=== PATIENT | male | born 1990 | race Caucasian/White ===

== ENCOUNTER 2018-02-25 07:38 | Emergency (ER) | payer BC, OTHER ==
[2018-02-25] MEDS ORDERED: Ibuprofen 800 MG Tab PO ONE (07:47)
[2018-02-25] MEDS ORDERED: HYDROmorphone 2 MG/ML SDV IM ONE (08:00)
[2018-02-25] MEDS ORDERED: Ondansetron 4 MG Tab.DIS PO ONE (08:00)
--- NOTE | 2018-02-25 08:08 | EDM.PDOC ---
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 Complains of right foot pain. No other complaints. Onset: Today Onset Date: 02/25/18 Onset Time: 07:00 Duration: Hour(s): (1) Location: Reports: Lower Extremity, Right Quality: Reports: Ache Severity: Moderate Improves with: Reports: None Worsens with: Reports: Movement Context: Reports: Trauma Associated Symptoms: Reports: No Other Symptoms R foot Pain Score (Numeric/FACES): 10 - Related Data Allergies Allergy/AdvReac Type Severity Reaction Status Date / Time No Known Allergies Allergy Verified 02/25/18 07:46 Home Meds: Home Meds Acetaminophen/HYDROcodone [[place] 325-5 MG] 1 - 2 tab PO Q6H PRN #20 tab [Rx] valACYclovir HCl [valACYclovir] 1 tab TID PRN 02/25/18 [History] Past Medical History - Past Health History Medical/Surgical History: Denies Medical/Surgical History HEENT History: Reports: Other (See Below) Other HEENT History: GRAPHIC DESIGNER BURN - Past Surgical History Musculoskeletal Surgical History: Reports: Shoulder Surgery, Other (See Below) Social & Family History - Living Situation & Occupation Living situation: Reports: Single Occupation: Employed Review of Systems - Review of Systems Review Of Systems: ROS reveals no pertinent complaints other than HPI. 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.) Neurological: Alert, Oriented, No Motor/Sensory Deficits Psychiatric: Normal Affect, Normal Mood Skin Exam: Warm, Dry, Intact ED TRAUMA EXTREMITY PROCEDURES - Splinting Right Lower Extremity Splint Site: RLE Pre-Procedure NV Status: Normal Post-Procedure NV Status: Normal Splint Material: Fiberglass Splint Design: Posterior, Other (short leg) Applied & Form Fitted By: Provider Provider Post-Splint Application NV Check: NV Status Normal Complications: No Course - Vital Signs Last Recorded V/S: Last Vital Signs Temp 36.3 C 02/25/18 07:38 Pulse 82 02/25/18 07:38 Resp 18 02/25/18 07:38 BP 131/71 02/25/18 07:38 Pulse Ox 100 02/25/18 07:38 - Orders/Labs/Meds Orders: Active Orders 24 hr Category Date Time Status Foot Comp Min 3V Rt [CR] Stat Exams 02/25/18 07:47 Taken Meds: Medications Discontinued Medications Generic Name Dose Route Start Last Admin Trade Name Freq PRN Reason Stop Dose Admin Hydromorphone HCl 1 mg 02/25/18 08:00 02/25/18 08:07 Dilaudid IM 02/25/18 08:01 1 mg ONETIME ONE Administration Ibuprofen 800 mg 02/25/18 07:47 02/25/18 08:01 Motrin PO 02/25/18 07:48 800 mg ONETIME ONE Administration Ondansetron HCl 4 mg 02/25/18 08:00 02/25/18 08:07 Zofran Odt PO 02/25/18 08:01 4 mg ONETIME ONE Administration - Radiology Interpretation Free Text/Narrative:: Right foot XR: comminuted and displaced fx of 2nd metatarsal, non-displaced fx of 3rd metatarsal. Departure - Departure Time of Disposition: 08:38 Disposition: Home, Self-Care 01 Condition: Good Clinical Impression: Closed fracture of foot Foot fracture, right Qualifiers: Encounter type: initial encounter Fracture type: closed Qualified Code(s): S92.901A - Unspecified fracture of right foot, initial encounter for closed fracture - Discharge Information *PRESCRIPTION DRUG MONITORING PROGRAM REVIEWED*: Yes *COPY OF PRESCRIPTION DRUG MONITORING REPORT IN PATIENT ROBYN: Not Applicable Prescriptions: Acetaminophen/HYDROcodone [[place] 325-5 MG] 1 - 2 tab PO Q6H PRN #20 tab PRN Reason: Pain Instructions: Crutch Use, Adult, [id number], Cast or Splint Care, Adult, Easy -to-Read, Metatarsal Fracture Referrals: PCP,None [Primary Care Provider] - Forms: ED Department Discharge Additional Instructions: Follow up at [facility] in [place], [place] today at 11:20 am. - My Orders Last 24 Hours: My Active Orders 02/25/18 07:47 Foot Comp Min 3V Rt [CR] Stat - Assessment/Plan Last 24 Hours: My Active Orders 02/25/18 07:47 Foot Comp Min 3V Rt [CR] Stat
[2018-02-25 09:14] VITALS: BP 110/64
--- NOTE | 2018-02-25 14:22 | CR ---
INDICATIONS: Dropped metal flash on foot, pain. RIGHT FOOT: Three views of the right foot revealed comminuted fracture at the midshaft of the second metatarsal with plantar offset of the main distal fracture fragment and rotation of a smaller comminuted fracture fragment almost 90 degrees. Additionally, in the midportion of the right third metatarsal, there is a hairline type fracture in good position and alignment. No other bone or joint abnormality was identified. MTDD
== END 2018-02-25 09:08 | disposition home or self-care (01) ==
LOC: FB.ED 07:38
DX: S92.334A Nondisplaced fracture of third metatarsal bone, right foot, initial encounter for closed fracture (principal); S92.321A Displaced fracture of second metatarsal bone, right foot, initial encounter for closed fracture; W20.8XXA Other cause of strike by thrown, projected or falling object, initial encounter; Y99.0 Civilian activity done for income or pay
CPT/HCPCS: 29515; 73630; 96372; 99283; A9270; J1170

== ENCOUNTER 2019-05-24 19:28 | Emergency (ER) | payer BC ==
[2019-05-24] MEDS ORDERED: Acetaminophen/HYDROcodone 325-5 MG Tab PO ONE ×2 (19:29→21:45)
[2019-05-24] MEDS ORDERED: Ondansetron 4 MG Tab.DIS PO ONE (19:29)
[2019-05-24] MEDS ORDERED: Ondansetron 4 MG/2 ML SDV IVPUSH ONE (20:00)
[2019-05-24] MEDS ORDERED: HYDROmorphone 2 MG/ML SDV IVPUSH ONE ×2 (20:00→20:35)
[2019-05-24] MEDS ORDERED: Sodium Chloride 0.9% 1,000 ML IV ONE (20:00)
[2019-05-24] MEDS ORDERED: Iopamidol 755 Mg/ML 100 ML Bottle IV ONE (20:13)
--- NOTE | 2019-05-24 21:23 | EDM.PDOC ---
ED HPI GENERAL MEDICAL PROBLEM - General Chief Complaint: Abdominal Pain Stated Complaint: STOMACH PAIN Time Seen by Provider: 05/24/19 20:00 Source of Information: Reports: Patient History Limitations: Reports: No Limitations - History of Present Illness INITIAL COMMENTS - FREE TEXT/NARRATIVE: Patient presents with low abdominal pain, onset this morning, rated as severe, associated with N/V. No prior h/o abdominal surgeries or kidney stones. Pain does not radiate Onset: Today Location: Reports: Abdomen Quality: Reports: Ache Severity: Severe Associated Symptoms: Reports: Nausea/Vomiting - Related Data Allergies Allergy/AdvReac Type Severity Reaction Status Date / Time No Known Allergies Allergy Verified 05/24/19 19:57 Past Medical History - Past Health History Medical/Surgical History: Denies Medical/Surgical History - Infectious Disease History Infectious Disease History: Reports: Herpes - Past Surgical History Musculoskeletal Surgical History: Reports: Shoulder Surgery Social & Family History - Family History Family Medical History: Noncontributory - Tobacco Use Smoking Status *Q: Current Every Day Smoker Tobacco Use Within Last Twelve Months: Cigarettes Years of Tobacco use: 10 Packs/Tins Daily: 1 - Caffeine Use Caffeine Use: Reports: Coffee, Energy Drinks, Soda, Tea - Alcohol Use Alcohol Use History: No - Recreational Drug Use Recreational Drug Use: No - Living Situation & Occupation Living situation: Reports: Single Occupation: Employed ED ROS GENERAL - Review of Systems Review Of Systems: ROS reveals no pertinent complaints other than HPI. ED EXAM, GI/ABD - Physical Exam Exam: See Below Exam Limited By: No Limitations General Appearance: Alert, WD/WN, Mild Distress Ears: Normal External Exam Nose: Normal Inspection Throat/Mouth: No Airway Compromise Head: Atraumatic, Normocephalic Neck: Full Range of Motion Respiratory/Chest: No Respiratory Distress, Lungs Clear, Normal Breath Sounds Cardiovascular: Regular Rate, Rhythm, No Murmur GI/Abdominal Exam: Normal Bowel Sounds, Soft, Tender (low abdomen) (Male) Exam: No Hernia Back Exam: Normal Inspection. No: CVA Tenderness (R), CVA Tenderness (L) Extremities: Normal Range of Motion Neurological: Alert, Normal Cognition Psychiatric: Normal Affect Skin Exam: Warm, Dry, Intact Course - Vital Signs Last Recorded V/S: Last Vital Signs Temp 36.4 C 05/24/19 19:30 Pulse 59 L 05/24/19 19:30 Resp 20 05/24/19 19:30 BP 141/76 H 05/24/19 19:30 Pulse Ox 100 05/24/19 19:30 - Orders/Labs/Meds Orders: Active Orders 24 hr Category Date Time Status Abdomen Pelvis w Cont [CT] Stat Exams 05/24/19 20:00 Taken CHLAMYDIA/GC AMPLIFICATION Stat Lab 05/24/19 21:37 Ordered CULTURE URINE [RM] Stat Lab 05/24/19 21:24 Ordered Acetaminophen/HYDROcodone [[place] 325-5 MG] Med 05/24/19 21:45 Once 1 tab PO ONETIME ONE Medication Orders Hydrocodone Bitart/Acetaminophen ([place] 325-5 Mg) 1 tab PO ONETIME ONE Stop: 05/24/19 21:46 Labs: Laboratory Tests 05/24/19 05/24/19 05/24/19 Range/Units 19:52 20:10 20:10 WBC 9.9 (4.5-12.0) X10-3/uL RBC 4.81 (4.30-5.75) x10(6)uL Hgb 15.3 (13.5-17.8) g/dL Hct 44.4 (30.0-51.3) % MCV 92.2 (80-96) fL MCH 31.7 (27.7-33.6) pg MCHC 34.4 (32.2-35.4) g/dL RDW 12.1 (11.5-15.5) % Plt Count 150 (125-369) X10(3)uL MPV 10.0 (7.4-10.4) fL Neut % (Auto) 79.3 (46-82) % Lymph % (Auto) 15.2 (13-37) % [place] % (Auto) 4.7 (4-12) % Eos % (Auto) 1 (1.0-5.0) % Baso % (Auto) 0 (0-2) % Neut # (Auto) 7.8 (1.6-8.3) # Lymph # (Auto) 1.5 (0.6-5.0) # [place] # (Auto) 0.5 (0.0-1.3) # Eos # (Auto) 0.1 (0.0-0.8) # Baso # (Auto) 0.0 (0.0-0.2) # Sodium 140 (135-145) mmol/L Potassium 3.8 (3.5-5.3) mmol/L Chloride 103 (100-110) mmol/L Carbon Dioxide 28 (21-32) mmol/L BUN 12 (7-18) mg/dL Creatinine 0.9 (0.70-1.30) mg/dL Est Cr Clr Drug Dosing 131.73 mL/min Estimated GFR (MDRD) > 60 (>60) BUN/Creatinine Ratio 13.3 (9-20) Glucose 115 (80-116) mg/dL Calcium 9.1 (8.6-10.2) mg/dL Total Bilirubin 0.4 (0.1-1.3) mg/dL AST 14 (5-25) IU/L ALT 16 (12-36) U/L Alkaline Phosphatase 79 (56-112) IU/L Total Protein 7.4 (6.0-8.0) g/dL Albumin 4.3 (3.5-5.2) g/dL Globulin 3.1 g/dL Albumin/Globulin Ratio 1.4 Amylase 46 (25-115) U/L Urine Color Yellow (YELLOW) Urine Appearance Cloudy (CLEAR) Urine pH 9.0 H (5.0-6.5) Ur Specific [place] 1.010 (1.010-1.025) Urine Protein Negative (NEGATIVE) mg/dL Urine Glucose (UA) Normal (NORMAL) mg/dL Urine Ketones 15 H (NEGATIVE) mg/dL Urine Occult Blood Negative (NEGATIVE) Urine Nitrite Negative (NEGATIVE) Urine Bilirubin Negative (NEGATIVE) Urine Urobilinogen 1 H (NEGATIVE) mg/dL Ur Leukocyte Esterase Small H (NEGATIVE) Urine RBC 0-5 (0-5) Urine WBC 0-5 (0-5) Ur Squamous Epith Cells Occasional (NS,R,O) Amorphous Sediment Many Urine Bacteria Few H (NS) Meds: Medications Generic Name Dose Route Start Last Admin Trade Name Freq PRN Reason Stop Dose Admin Hydrocodone Bitart/Acetaminophen 1 tab 05/24/19 21:45 [place] 325-5 Mg PO 05/24/19 21:46 ONETIME ONE Discontinued Medications Generic Name Dose Route Start Last Admin Trade Name Freq PRN Reason Stop Dose Admin Hydromorphone HCl 1 mg 05/24/19 20:00 05/24/19 20:14 Dilaudid IVPUSH 05/24/19 20:01 1 mg ONETIME ONE Administration Hydromorphone HCl 1 mg 05/24/19 20:35 05/24/19 20:40 Dilaudid IVPUSH 05/24/19 20:36 1 mg ONETIME ONE Administration Sodium Chloride 1,000 mls @ 999 mls/hr 05/24/19 20:00 05/24/19 20:10 Normal Saline IV 05/24/19 21:00 999 mls/hr .BOLUS ONE Administration Iopamidol 100 ml 05/24/19 20:13 05/24/19 20:51 Isovue-370 (76%) IV 05/24/19 20:14 100 ml . DIRECTED ONE Administration Ondansetron HCl 4 mg 05/24/19 20:00 05/24/19 20:12 Zofran IVPUSH 05/24/19 20:01 4 mg ONETIME ONE Administration - Radiology Interpretation Free Text/Narrative:: CT Abd/Pelvis w/ IV contrast: There are fluid levels in the small bowel and colon, which can be seen in the setting of diarrhea. No evidence for bowel obstruction. The appendix is normal. - Re-Assessments/Exams Free Text/Narrative Re-Assessment/Exam: 05/24/19 21:44 pain and nausea have improved Departure - Departure Time of Disposition: 21:44 Disposition: Home, Self-Care 01 Condition: Good Clinical Impression: Gastroenteritis - Discharge Information *PRESCRIPTION DRUG MONITORING PROGRAM REVIEWED*: Yes *COPY OF PRESCRIPTION DRUG MONITORING REPORT IN PATIENT ROBYN: No Instructions: Viral Gastroenteritis, Adult Referrals: PCP,None [Primary Care Provider] - Forms: ED Department Discharge Additional Instructions: Take the [place] and Zofran as directed. Push clear fluids, advance as tolerated. Follow up with your primary physician in 2 days if symptoms don't improve. Return to the ER if symptoms worsen. - My Orders Last 24 Hours: My Active Orders 05/24/19 20:00 Abdomen Pelvis w Cont [CT] Stat 05/24/19 21:24 CULTURE URINE [RM] Stat 05/24/19 21:37 CHLAMYDIA/GC AMPLIFICATION Stat 05/24/19 21:45 Acetaminophen/HYDROcodone [[place] 325-5 MG] 1 tab PO ONETIME ONE - Assessment/Plan Last 24 Hours: My Active Orders 05/24/19 20:00 Abdomen Pelvis w Cont [CT] Stat 05/24/19 21:24 CULTURE URINE [RM] Stat 05/24/19 21:37 CHLAMYDIA/GC AMPLIFICATION Stat 05/24/19 21:45 Acetaminophen/HYDROcodone [[place] 325-5 MG] 1 tab PO ONETIME ONE
[2019-05-24 23:34] VITALS: BP 109/45; PULSE 72
[2019-05-27 01:06] LABS: CHLAMYDIA TRACHOMATIS, NAA Negative (Negative); NEISSERIA GONORRHOEAE, NAA Negative (Negative)
== END 2019-05-24 22:00 | disposition home or self-care (01) ==
LOC: FB.ED 19:28
DX: K52.9 Noninfective gastroenteritis and colitis, unspecified (principal); F17.210 Nicotine dependence, cigarettes, uncomplicated
CPT/HCPCS: 36415; 74177; 80053; 81001; 82150; 85025; 87086; 87491; 87591; 96361; 96374; 96375; 99284-25; A9270-GY; J1170; J2405; J7030; Q9967